=== PATIENT | male | born 1985 | race Caucasian/White ===

== ENCOUNTER 2022-01-14 14:37 | Emergency (ER) | payer BC, SELFPAY ==
[2022-01-14] VITALS (9 sets, daily range): BP systolic 144–175; BP diastolic 87–113; PULSE 81–112; RESP 10–19; TEMP 36.6–37; O2SAT 96–100
--- NOTE | ~2022-01-14 | XR_ITS ---
EXAM: XR tibia fibula RT 2V, XR ankle RT min 3V DATE: 01/14/2022 14:57 HISTORY: deformity INJURY . COMPARISON: None available. FINDINGS: Examination is limited by nonstandard positioning from the injury deformity. Normal minera lization. No definite fracture. Dislocation in the hindfoot at the articulation of the talus with the calcaneus and navicular, with lateral displacement of the distal bones. No lytic or blastic lesion. Joint spaces are maintained. No erosion or periosteal change. Soft tissues within normal limits. IMPRESSION: Hindfoot dislocation. Reviewed, dictated and finalized at location K. VERY PERSON IMPRESSION: Hindfoot dislocation. IMPRESSION: Hindfoot dislocation.
--- NOTE | ~2022-01-14 | XR_ITS ---
XR ankle RT min 3V DATE: 01/14/2022 16:06 INDICATION: Postoperative reduction examination TECHNIQUE: 3 views COMPARISON: 01/14/2022 right ankle and right lower leg FINDINGS: There is reduction of the previously reported lateral hindfoot dislocation. No fracture or dislocation of the ankle or disruption of the ankle mortise is evident. The talus is n ow normally aligned with the calcaneus and navicular bones. No obvious fracture is noted. Right foot radiographs would be helpful for more complete evaluation. Slight posterior calcaneal enthesopathy. There is a soft tissue wrap around the ankle and foot. IMPRESSION: Reduction of hindfoot dislocation Reviewed, dictated and finalized at location A. PATTERNMAKER
--- NOTE | 2022-01-14 14:56 | ED.LOWEXIN ---
HPI - Extremity Injury (Lower) General Chief Complaint: Extremity Injury, Lower Stated Complaint: ANKLE DEFORMITY Time Seen by Provider: 01/14/22 14:48 Source: patient Limitations: no limitations History of Present Illness HPI Narrative: 36 years old, trampoline, right ankle deformity.he denies other injuries Related Data Allergies Allergy/AdvReac Type Severity Reaction Status Date / Time NKDA Allergy Unknown Uncoded 08/12/02 12:23 NKFA Allergy Unknown Uncoded 08/12/02 12:23 NA Allergy Uncoded 06/03/08 11:55 Review of Systems Review of Systems: All systems reviewed & are unremarkable except as noted in HPI and below Exam Narrative: General appearance: Well-developed, well-nourished Skin: Normal color Head: Normocephalic, nontraumatic Eyes: Clear conjunctiva ENT: Oropharynx normal, ears normal, nose normal Neck: Supple, nontender Chest and respiratory: Airway patent, no respiratory distress, no accessory muscle use Heart: Regular rate/rhythm Abdomen: Soft, nontender, no organomegaly, quiet bowel sounds Vascular: Normal peripheral pulses, normal capillary refill. 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 Carranza Date: 01/14/22 Time: 16:57 Vital Signs Vital signs: Vital Signs Temperature 37.0 C 01/14/22 14:40 Pulse Rate 108 H 01/14/22 14:40 Respiratory Rate 18 01/14/22 14:40 Blood Pressure 167/99 H 01/14/22 14:40 Pulse Oximetry 96 01/14/22 14:40 Temperature 36.9 C 01/14/22 16:15 Pulse Rate 86 01/14/22 16:41 Respiratory Rate 18 01/14/22 16:41 Blood Pressure 155/105 H 01/14/22 16:41 Pulse Oximetry 98 01/14/22 16:41 Oxygen Delivery Room Air 01/14/22 16:15 Oxygen Flow Rate 2 01/14/22 15:55 Procedures Orthopedic Joint Reduction Joint #1: Orthopedic Joint Reduction Date: 01/14/22 Orthopedic Joint Reduction Time: 15:59 Time Out Performed: Yes (25) Side: right Joint Reduction Location: ankle Analgesia: procedural sedation Pre-Procedure Neuro Vascular Exam: normal Amount of anesthesic used (mL): 20 Technique used: traction/counter-traction Post-reduction neuro exam: intact Post-reduction vascular: intact Post Reduction X-Ray Obtained: Yes Post Reduction X-Ray Results: reduced Splint Applied: Yes Patient Tolerated Procedure: well Procedural Sedation Procedural Sedation #1: Procedural Sedation Date: 01/14/22 Procedural Sedation Time: 16:02 Presedation Evaluation: Neurovascular intact Procedure: Right ankle closed reduction Provider Performed: sedation and procedure Time Out: 25-minute Informed Consent Obtained: yes Equipment in Room: bag and mask, capnography, ekg monitor tech, crash cart and pulse oximeter Plan for Sedation: moderate sedation ASA Class: I (A normally healthy patient) Mallampati Classification: class I NPO Status: last solid food (hours ago) Explanation to Patient/Family: Risk/Benefits/Alternatives Pt. Educated on Procedural Sedation: Yes Re-evaluated immediately prior: Yes Preparation: ekg monitor tech applied, pulse oximeter, supplemental O2 applied, reversal agents at bedside, suction/airway equipment at bedside and IV secured IV Etomidate dose (mg): 20 Patient Tolerated Procedure: well Complications: none Interventions: oxygen applied Total Sedation Time (min): 4 MDM - Extremity Injury (L
[2022-01-14] MEDS: HYDROmorphone HCL INJ (*CRX) 1 MG/ML SYR 0.5 MG IV PUSH (15:11)
[2022-01-14] MEDS: ONDANSETRON INJ 4 MG/2 ML VIAL IV PUSH (15:11)
[2022-01-14] MEDS: ETOMIDATE 20 MG/10 ML AMPUL 40 MG IV PUSH (15:45)
[2022-01-14] MEDS: SODIUM CHLORIDE 0.9% IV 1,000 ML 999 ML (15:53)
== END 2022-01-14 17:03 | disposition home or self-care (01) ==
PROVIDERS: Emergency Provider Emergency Medicine
DX: S93.04XA Dislocation of right ankle joint, initial encounter (principal); X58.XXXA Exposure to other specified factors, initial encounter; Y93.44 Activity, trampolining
CPT/HCPCS: 27840; 28435; 73590; 73610; 96374; 96375; 99285; J1170; J2405; J7030